=== PATIENT | male | born 1990 ===

== ENCOUNTER 2018-07-31 14:47 | Emergency (ER) | payer OTHER ==
[2018-07-31 16:37] VITALS: BP 139/84
--- NOTE | 2018-07-31 16:46 | UC ---
Upper Extremity HPI - HPI Summary HPI Summary: 27 y/o male with no PMH, no prior shoulder injuries presents with possible dislocation of L shoudler. States while rock climbing yesterday hyper-extended shoulder, felt a "pop" with immediate pain and a second "pop" when arm was brought down. Transient numbness, resolved. ?weakness in L arm when compared to right, dcreased ROM due to pain, worse with extension, flexion greater than 90. - History of Current Complaint Chief Complaint: UCUpperExtremity Stated Complaint: SHOULDER INJURY Time Seen by Provider: 07/31/18 16:43 Hx Obtained From: Patient ?: No Onset/Duration: Sudden Onset, Lasting Days Severity Initially: Severe Severity Currently: Moderate Pain Intensity: 5 Pain Scale Used: 0-10 Numeric Location Of Pain: Is Discrete @ - r shoulder Character: Throbbing Aggravating Factor(s): Movement, Lifting, Flexion, Extension Alleviating Factor(s): Rest - Allergies/Home Medications Allergies/Adverse Reactions: Allergies Allergy/AdvReac Type Severity Reaction Status Date / Time No Known Allergies Allergy Verified 07/31/18 16:37 Home Medications: Home Medications Acetaminophen TAB* [Tylenol TAB*] 325 mg PO Q4H PRN 07/31/18 [History Confirmed 07/31/18] Ibuprofen TAB* [Motrin TAB* 400 MG] 400 mg PO Q6H PRN 07/31/18 [History Confirmed 07/31/18] PMH/Surg Hx/FS Hx/Imm Hx Previously Healthy: Yes - Surgical History Surgical History: None - Social History Alcohol Use: Weekly Substance Use Type: None Smoking Status (MU): Current Some Day Smoker Review of Systems All Other Systems Reviewed And Are Negative: Yes Musculoskeletal: Positive: Arthralgia, Decreased ROM, Myalgia Is Patient Immunocompromised?: No Physical Exam Triage Information Reviewed: Yes Appearance: Well-Appearing, No Pain Distress, Well-Nourished Vital Signs: Initial Vital Signs Temp 97.2 F 07/31/18 16:33 Pulse 59 07/31/18 16:33 Resp 16 07/31/18 16:33 BP 139/84 07/31/18 16:33 Pulse Ox 99 07/31/18 16:33 Vital Signs Reviewed: Yes Eyes: Positive: Conjunctiva Clear Musculoskeletal: Positive: ROM Limited @ - decreased ROM of R shoulder due to pain with ARM flex to 90, abd to 90. no TTP throuthout shoulder joint, + pain with infraspin and supraspin testing. 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 Psychological Exam: Normal Skin Exam: Normal Skin: Positive: Other - no openings, sores Upper Extremity Course/Dx - Course Course Of Treatment: radiograph- neg for fx, possible dislocation of RC strain, follow up with orthopedics in ~ 5 days for further evaluation - Differential Dx/Diagnosis Differential Diagnosis/HQI/PQRI: Fracture (Open), Strain, Sprain Provider Diagnosis: Dislocation, shoulder closed Discharge - Sign-Out/Discharge Documenting (check all that apply): Patient Departure All imaging exams completed and their final reports reviewed: Yes - Discharge Plan Condition: Good Disposition: HOME Patient Education Materials: R.I.C.E. Treatment (ED), Shoulder Dislocation (ED) Referrals: No Primary Care Phys,NOPCP [Primary Care Provider] - Brennan Mendoza MD [Medical Doctor] - Additional Instructions: - Use sling as needed for comfort - Motrin/ Tylenol as needed for pain - No heavy lifting/ pulling/ pushing. - Follow up with orthopedics within 5 days - Take arm out of sling multiple times a day for gentle stretching. - Billing Disposition and Condition Condition: GOOD Disposition: Home
== END 2018-07-31 17:54 | disposition home or self-care (01) ==
LOC: UCEAST 14:47
DX: S43.004A Unspecified dislocation of right shoulder joint, initial encounter (principal); F17.200 Nicotine dependence, unspecified, uncomplicated; X58.XXXA Exposure to other specified factors, initial encounter; Y92.9 Unspecified place or not applicable
CPT/HCPCS: 99212; G0463

== ENCOUNTER 2018-08-29 10:17 | Emergency (ER) | payer OTHER ==
--- NOTE | 2018-08-29 10:21 | UC ---
Abdominal Pain Male HPI - HPI Summary HPI Summary: 27 yo male presents with generalized abdominal bloating, nausea, and belching for the for the last 2 weeks. He tells me that 2 weeks ago he ordered [place] food and didn't feel well after eating it. He left it sit out overnight and ate it again the next day and felt even worse. Since that time he has been having intermittent nausea, belching, and abdominal bloating. His symptoms are worse after eating. He has been taking tums with no change in his symptoms. He also has been having some loose stools, but no diarrhea. Denies recent travel, fever , chills, SOB, chest pain, dysuria. - History of Current Complaint Stated Complaint: ABD PAIN Time Seen by Provider: 08/29/18 10:18 Hx Obtained From: Patient Onset/Duration: Gradual Onset Timing: Constant Severity Initially: Mild Severity Currently: Mild Pain Intensity: 2 Pain Scale Used: 0-10 Numeric - Allergies/Home Medications Allergies/Adverse Reactions: Allergies Allergy/AdvReac Type Severity Reaction Status Date / Time No Known Allergies Allergy Verified 08/29/18 10:42 PMH/Surg Hx/FS Hx/Imm Hx - Additional Past Medical History Additional PMH: None - Surgical History Surgical History: None - Family History Known Family History: Positive: None - Social History Occupation: Employed Full-time Lives: With Family Alcohol Use: Weekly Substance Use Type: None Smoking Status (MU): Current Some Day Smoker Type: Cigarettes Review of Systems All Other Systems Reviewed And Are Negative: Yes Constitutional: Positive: Negative Skin: Positive: Negative Respiratory: Positive: Negative Cardiovascular: Positive: Negative Gastrointestinal: Positive: Abdominal Pain, Nausea Neurovascular: Positive: Negative Neurological: Positive: Negative Psychological: Positive: Negative Physical Exam - Summary Physical Exam Summary: GENERAL: NAD. WDWN. No pain distress. SKIN: No rashes, sores, lesions, or open wounds. NECK: Supple. Nontender. No lymphadenopathy. CHEST: CTAB. No r/r/w. No accessory muscle use. Breathing comfortably and in no distress. CV: RRR. Without m/r/g. Pulses intact. Cap refill <2seconds ABDOMEN: Soft. NTTP. No distention or guarding. No organomegaly. No CVA tenderness. Bowel sounds present NEURO: Alert. PSYCH: Age appropriate behavior. Triage Information Reviewed: Yes Vital Signs: Vital Signs: Temp Pulse Resp BP Pulse Ox 98.2 F 70 16 127/78 97 08/29/18 10:33 08/29/18 10:33 08/29/18 10:33 08/29/18 10:33 08/29/18 10:33 Vital Signs Reviewed: Yes Abd Pain Male Course/Dx - Course Course Of Treatment: His symptoms are most consistent for GERD vs H. pylori. Discussed with pt testing for H pylori via stool sample or referral to GI for possible breath testing. Pt prefers to do stool sample at this time as appt to GI may take awhile. Will test for stool culture, occult blood, and h pylori and treat as needed. While awaiting results, I will have him start pantoprazole once daily for his symptoms. Discussed that if testing is negative and discomfort continues to call GI to f/u. Pt voiced understanding and agrees with the plan. - Differential Dx/Clinical Impression Provider Diagnosis: Abdominal pain, lower, Abdominal bloating, Nausea Discharge - Sign-Out/Discharge Documenting (check all that apply): Patient Departure All imaging exams completed and their final reports reviewed: No Studies - Discharge Plan Condition: Stable Disposition: HOME Prescriptions: Pantoprazole TAB (NF) [Protonix TAB (NF)] 20 mg PO DAILY #30 tab Patient Education Materials: Helicobacter Pylori (ED), Gastroesophageal Reflux Disease (ED) Referrals: No Primary Care Phys,NOPCP [Primary Care Provider] - James Priest MD [Medical Doctor] - If Needed Additional Instructions: If you develop a fever, shortness of breath, chest pain, new or worsening symptoms - please call your PCP or go to the ED. Your symptoms seem most consistent with acid reflux or with a bacterial condition called Heliobacter Pylori. Please complete the stool sample as soon as possible to further evaluate your abdominal discomfort. Try taking the pantoprazole (prescription below) once a day for 2 weeks. If your symptoms do not improve - please call Dr. Priest (gastroenterology) at the number below to schedule a follow up appointment. - Billing Disposition and Condition Condition: STABLE Disposition: Home
[2018-08-29 10:42] VITALS: BP 127/78
[2018-08-31 00:18] LABS: Stool Helicobacter pylori Ag Negative (Negative)
== END 2018-08-29 11:00 | disposition home or self-care (01) ==
LOC: UCEAST 10:17
DX: R10.84 Generalized abdominal pain (principal); R11.0 Nausea; R14.0 Abdominal distension (gaseous); F17.210 Nicotine dependence, cigarettes, uncomplicated
CPT/HCPCS: 82272; 87045; 87046; 87338; 87899; 99212; G0463